=== PATIENT | female | born 1980 ===

== ENCOUNTER → 2017-11-03 | Outpatient (CLI) | payer BC ==
[~2017-11-03] VITALS: Ht 157.5 cm; Wt 64.5 kg
[2017-11-03 11:25] VITALS: BP 99/66
== END | disposition home or self-care (01) ==
LOC: SRCNTR 10:57
PROVIDERS: ATTEND Internal Medicine
DX: J45.909 Unspecified asthma, uncomplicated (principal)
CPT/HCPCS: G0463